=== PATIENT | female | born 1970 | race Caucasian/White ===

== ENCOUNTER 2016-07-17 13:34 | Day surgery (SDC) | payer OTHER ==
[~2016-07-17 13:34] MED LIST: CIPROFLOXACIN HCL 500 MG TABLET PO PRN
[2016-07-17 16:35] VITALS: BP 97/62
== END 2016-07-17 13:35 | disposition home or self-care (01) ==
LOC: AMB 13:34
PROVIDERS: ATTEND Urology
PROC: 0TP98DZ Removal of Intraluminal Device from Ureter, Via Natural or Artificial Opening Endoscopic (ICD-10-PCS; principal; 2016-07-17 15:55)
DX: N20.0 Calculus of kidney (principal); J44.9 Chronic obstructive pulmonary disease, unspecified; Z87.891 Personal history of nicotine dependence; Z68.22 Body mass index [BMI] 22.0-22.9, adult

== ENCOUNTER 2016-07-18 04:04 | Emergency (ER) | payer OTHER ==
[2016-07-18] MEDS ORDERED: ONDANSETRON HCL/PF 2 MG/ML VIAL IV ONE (04:20)
--- NOTE | 2016-07-18 04:20 | ERNOTE ---
Medical Problem HPI - Narrative Date of Service: 07/18/16 - General Chief Complaint: Nausea/Vomiting Time Seen by Provider: 07/18/16 04:17 Source: patient, family Exam Limitations: no limitations - Immun/Allergies/Home Medications Immunizations: IMMUNIZATION HX Immunizations Up to Date Yes History of Influenza Vaccine No Hx Pneumococcal Vaccination No Allergies/Adverse Reactions: Allergies No Known Allergies Allergy (Verified 07/17/16 14:15) Home Medications: HOME MEDICATIONS Albuterol Sulfate [Proair Hfa] 1 - 2 puff IH Q6H PRN 07/17/16 [Last Taken Unknown] Multivitamins-Min/FA/Ginkgo [One Daily Women 50 Plus Tab] 1 each PO DAILY [Last Taken Unknown] Ondansetron [Zofran Odt] 4 mg PO Q6H PRN #20 tab 07/18/16 [Last Taken Unknown] - History of Present History Narrative: patient has left ureteral stent placed and about 5 pm started to have pain and dry heave without end and uncontrolled pain. Here with spouse for pain evaluation Date (Duration): 07/17/16 Time (Timing): 17:00 Timing: constant, getting worse Severity: severe Modifying Factors - (Improves): Present: medication, other - medication made her nauseas and thus not effective for pain control. Patient had not been able to eat x 2 days. Modifying Factors - (Worsens): Present: eating, medication - severe nausea was not treated. - Patient's Past Medical History Patient History - Medical: Kidney stone Patient History - Cardiac/Respiratory: Asthma, Bronchitis, COPD Patient History - Cancer: No Hx of Cancer Patient History - Surgical Procedures: Tubal Ligation - Social History Living Situations: spouse Does anyone smoke in the home?: No Alcohol Use: rarely Drug Use: none Physical Exam - Physical Exam General Appearance: Present: wd/wn, severe distress - due to poorly controlled pain Ears, Nose, Throat: Present: normal ENT inspection, hearing grossly normal. Absent: nasal congestion, sinus pain/drainage, pharyngeal erythema Neck: Present: normal inspection, nontender, supple, full range of motion Respiratory: Present: no respiratory distress, normal breath sounds, no accessory muscle use, chest nontender, lungs clear Cardiovascular/Chest: Present: regular rate, rhythm, no murmur, tachycardia. Absent: gallop/S3, gallop/S4 Peripheral Pulses: N=norm/S=strong/W=weak/B=bound/A=absent: Carotid (R): Normal , Carotid (L): Normal Gastrointestinal/Abdominal: Present: normal bowel sounds, nontender, soft. Absent: tenderness, rebound, mass, hernia, hepatomegaly Rectal Exam: Present: deferred Back Exam: Present: normal inspection, normal range of motion, no vertebral tenderness Extremity Exam: Present: normal inspection, non-tender, no edema Neurological Exam: Present: alert, oriented, normal mood/affect, no motor/ sensory deficits, appliquer II-XII nml as tested DTR: N=norm/NB=norm/brisk/A=abs/DD=dull/dimin/HC=hyperactive: Bicep (R): Normal , Bicep (L): Normal Skin Exam: Present: normal color Lymphatic Exam: Present: no adenopathy Pelvic Exam: Present: deferred ED Progress - Results and Orders Patient's Lab Results:: I have reviewed the patient's lab results. - Vital Signs Patient's Vital Signs:: I have reviewed the patient's vital signs. Vital Signs: Vital Signs 07/18/16 04:09 Temperature 35.6 C L Pulse Rate 63 Respiratory 18 Rate Blood Pressure 141/71 O2 Sat by Pulse 96 Oximetry - Progress/Reassessment Chief Complaint: Nausea/Vomiting Progress:: Pain free at discharge Plan - Plan Plan: once pain was controlled patient was stable for discharge. She responded well to Gifty saline bolus and zofran. Analgesic was then effective x 1 . Departure - Departure Clinical Impression: Renal colic on left side Disposition: Home self-care Condition: Good Instructions: Renal Colic, [id number] Additional Instructions: eat small frequent meals and follow up with Dr. Gunter Prescriptions: Ondansetron [Zofran Odt] 4 mg PO Q6H PRN #20 tab PRN Reason: Vomiting
[2016-07-18] MEDS ORDERED: ONDANSETRON HCL/PF 2 MG/ML VIAL ONE (04:21)
[2016-07-18] MEDS ORDERED: HYDROmorphone HCL 2 MG/ML VIAL IV ONE (04:21)
[2016-07-18] MEDS ORDERED: NORMAL SALINE 1,000 ML IV ONE (04:26)
[2016-07-18] MEDS ORDERED: HYDROmorphone HCL 2 MG/ML VIAL ONE (04:30)
[2016-07-18 04:48] LABS: Hemoglobin 12.3 gm/dL (12.5-16.0); Mean Cell Volume 84.5 fl (78-100); Mean Corpuscular Hemoglobin 28.1 pg (27-31); Mean Corpuscular Hgb Conc 33.2 g/dl (32-36); Mean Platelet Volume 9.3 fl (6.0-9.5); Neutrophil # 15.4 K/mm3 (1.3-6.0); Neutrophil % 92.9 % (42-75.0); Platelet Count 454 K/mm3 (150-450); Red Blood Count 4.38 M/mm3 (4.2-5.4); Red Cell Distribution Width 13.8 % (11.5-14.0); White Blood Count 16.5 K/mm3 (4.0-10.5)
[2016-07-18 05:01] LABS: Albumin * 3.4 gm/dl (3.4-5.0); Anion Gap 19.4 mmol/L (6.8-13.8); BUN/Creatinine Ratio 18.3 (9.0-21.6); Bilirubin, Total 0.7 mg/dL (0.0-1.1); Ca. Corrected For Albumin 9.2 mg/dL (8.4-10.2); Carbon Dioxide 20.6 mmol/L (24-32.6); Total Protein 7.3 gm/dL (6.2-8.2)
[2016-07-18] MEDS ORDERED: ONDANSETRON 4 MG TAB.RAPDIS PO ONE (05:24)
[2016-07-18] MEDS ORDERED: ONDANSETRON 4 MG TAB.RAPDIS ONE (05:26)
[2016-07-18 07:44] VITALS: BP 95/49
== END 2016-07-18 05:35 | disposition home or self-care (01) ==
LOC: ER 04:04
DX: N23 Unspecified renal colic (principal); Z87.442 Personal history of urinary calculi